=== PATIENT | female | born 1970 | race Caucasian/White ===

== ENCOUNTER 2018-12-11 16:52 | Emergency (ER) | payer BC ==
[2018-12-11] MEDS ORDERED: Acetaminophen TAB* 325 MG PO ONE (17:08)
[2018-12-11] MEDS ORDERED: Ketorolac INJ* 30 MG/ML 1 ML VIAL IV PUSH ONE (18:13)
[2018-12-11] MEDS ORDERED: NS 0.9% 1000 ML** 1,000 ML IV SCH (18:15)
--- NOTE | 2018-12-11 18:24 | UC ---
Headache HPI - HPI Summary HPI Summary: PATIENT WITH A HISTORY OF MIGRAINE HEADACHES. TAKES TOPAMAX DAILY AND RELPAX NEEDED USUALLY WITH GOOD EFFECT. HAS HAD A CONSTANT SHARP DIFFUSE HEADACHE SINCE YESTERDAY MORNING. HAD HER BLOOD PRESSURE CHECKED AT WORK AND IT WAS FOUND TO BE 142/110 AND SHE WAS ADVISED TO BE SEEN HERE. SHE HAS AN APPOINTMENT WITH HER PCP TOMORROW. SHE DENIES FEVER. NO NAUSEA. NO VISUAL DISTURBANCES. HAS SENSITIVITY TO SOUND AND LIGHT. FEELS WORSE THAN HER NORMAL MIGRAINE HEADACHE. - History Of Current Complaint Chief Complaint: UCGeneralIllness Stated Complaint: HIGH BLOOD PRESSURE Time Seen by Provider: 12/11/18 17:08 Hx Obtained From: Patient Hx Last Menstrual Period: 01/01/15 TUB2004 Onset/Duration: Gradual Onset, Lasting Days, Still Present Pain Intensity: 8 Pain Scale Used: 0-10 Numeric Timing: Constant Character: Sharp Location of Headache: Diffuse Aggravating Factor(s): Nothing Allevating Factor(s): Nothing Associated Signs And Symptoms: Negative: Nausea, Fever, Visual Changes - Allergies/Home Medications Allergies/Adverse Reactions: Allergies Allergy/AdvReac Type Severity Reaction Status Date / Time moxifloxacin [From Avelox] Allergy Difficulty Verified 12/11/18 17:03 Breathing sulfamethoxazole Allergy Rash Verified 12/11/18 17:03 [From Bactrim] trimethoprim [From Bactrim] Allergy Rash Verified 12/11/18 17:03 Home Medications: Home Medications Acetaminophen [Tylenol] 325 mg PO BID 12/11/18 [History Confirmed 12/11/18] Ibuprofen TAB* [Advil TAB*] 1 tab PO ONCE 12/11/18 [History Confirmed 12/11/18] PMH/Surg Hx/FS Hx/Imm Hx Neurological History: Migraine - Surgical History Surgical History: Yes Surgery Procedure, Year, and Place: 1985 & C-SECTIONS. 2004 TUBAL - Family History Known Family History: Positive: Non-Contributory - Social History Alcohol Use: Occasionally Substance Use Type: None Smoking Status (MU): Never Smoked Tobacco Review of Systems All Other Systems Reviewed And Are Negative: Yes Constitutional: Positive: Negative Eyes: Positive: Photophobia Respiratory: Positive: Negative Cardiovascular: Positive: Negative Gastrointestinal: Positive: Negative Neurological: Positive: Headache Physical Exam Triage Information Reviewed: Yes Appearance: Well-Appearing, No Pain Distress, Well-Nourished Vital Signs: Initial Vital Signs Temp 97.8 F 12/11/18 16:58 Pulse 80 12/11/18 16:58 Resp 12 12/11/18 16:58 BP 150/95 12/11/18 16:58 Pulse Ox 99 12/11/18 16:58 Vital Signs Reviewed: Yes Eyes: Positive: Conjunctiva Clear, Other: - PERRL, EOMI ENT: Positive: Hearing grossly normal, Pharynx normal, TMs normal Neck: Positive: Supple, Nontender, No Lymphadenopathy Respiratory Exam: Normal Cardiovascular Exam: Normal Abdomen Description: Positive: Soft Musculoskeletal: Positive: No Edema Neurological: Positive: Alert Psychological: Positive: Age Appropriate Behavior Skin: Negative: Rashes Headache Course/Dx - Course Course Of Treatment: BP ON ARRIVAL 150/95. MANUAL RECHECK 1 HR LATER 145/80. PATIENT HAS APPOINTMENT WITH PCP TOMORROW. ADVISED HER TO KEEP THIS APPOINTMENT TO DISCUSS HER BLOOD PRESSURE. I DO NOT FEEL SHE NEEDS TO BE TRANSFERRED TO THE EMERGENCY ROOM AT THIS TIME. FELT SLIGHTLY BETTER AFTER IV FLUID HYDRATION. - Differential Dx/Diagnosis Provider Diagnosis: Migraine Discharge - Sign-Out/Discharge Documenting (check all that apply): Patient Departure All imaging exams completed and their final reports reviewed: No Studies - Discharge Plan Condition: Stable Disposition: HOME Patient Education Materials: Migraine Headache (ED) Referrals: Brown Boo MD [Primary Care Provider] - (KEEP YOUR APPT TOMORROW) Additional Instructions: YOU HAD SOME IMPROVEMENT AFTER 1 L NORMAL SALINE AND 30 MG TORADOL. STAY WELL HYDRATED. YOUR BLOOD PRESSURE WAS SLIGHTLY ELEVATED IN THE 140s/80-90s WHILE YOU WERE HERE. WHILE THIS IS SLIGHTLY ELEVATED IT IS NOT AN ALARMING NUMBER. KEEP YOUR PCP APPOINTMENT TOMORROW TO FURTHER DISCUSS YOUR BLOOD PRESSURE AND HEADACHES. GO TO THE ED OVERNIGHT IF YOU DEVELOP WORSENING PAIN, FEVER, NAUSEA OR ANY OTHER CONCERNING SYMPTOMS. - Billing Disposition and Condition Condition: STABLE Disposition: Home
[2018-12-11 20:03] VITALS: BP 142/92
== END 2018-12-11 20:23 | disposition home or self-care (01) ==
LOC: UCEAST 16:52
DX: G43.909 Migraine, unspecified, not intractable, without status migrainosus (principal); Z88.2 Allergy status to sulfonamides; Z88.1 Allergy status to other antibiotic agents
CPT/HCPCS: 96360; 96374; 99212; A9270-GY; G0463; J1885

== ENCOUNTER 2019-05-03 10:27 | Emergency (ER) | payer BC ==
[2019-05-03] MEDS ORDERED: Metoclopramide IV* 5 MG/ML 2 ML VIAL IV SLOW PU ONE (11:45)
[2019-05-03] MEDS ORDERED: Acetaminophen TAB* 325 MG PO ONE (11:45)
[2019-05-03] MEDS ORDERED: NS 0.9% 1000 ML** 1,000 ML IV ONE (11:45)
[2019-05-03 12:23] LABS: ABS Basophils 0.1 10^3/ul (0-0.2); ABS Eosinophils 0.7 10^3/ul (0-0.6); ABS Lymphocytes 1.5 10^3/ul (1.0-4.8); ABS Monocytes 0.4 10^3/ul (0-0.8); ABS Neutrophils 3.1 10^3/ul (1.5-7.7); Eosinophil % 11.7 %; Hematocrit 40 % (35-47); Hemoglobin 13.7 g/dL (12.0-16.0); Lymphocyte % 25.8 %; Mean Corpuscular HGB Conc 34 g/dL (31-36); Mean Corpuscular Hemoglobin 30 pg (27-31); Mean Corpuscular Volume 89 fL (80-97); Mean Platelet Volume 8.1 fL (7.4-10.4); Nucleated Red Blood Cells % 0.1; Platelet Count 181 10^3/uL (150-450); Red Blood Count 4.53 10^6 /uL (3.70-4.87); Red Cell Distribution Width 13 % (10-15); White Blood Count 5.8 10^3/uL (3.5-10.8)
--- NOTE | 2019-05-03 12:25 | ED ---
Headache - HPI Summary HPI Summary: The patient is a 49 y/o F presenting to [facility] with a chief complaint of headache starting two weeks ago. She reports that she was hit in the head three weeks ago by a basketball and had an immediate onset SZYMANSKI that resolved. She didn' t have any LOC at this time. About a week later, she is started having another SZYMANSKI. She states she has hx of migraines and usually treats them with a Toradol shot if needed. Since the pain persisted, the patient had a Toradol shot on , but it only relieved the pain for that day. She has continued to experience the headache, located in the parietal regions and behind the right eye, as well as an off-balance sensation, neck pain, joint pains in the hands, and nausea without vomiting. She states that the pain does not keep her awake at night, but she wakes up with the pain. She denies fevers. She has been taking Fioricet and Relpax as she has been prescribed for migraines. She states the SZYMANSKI is the one of the longest and more severe that she's ever had. No other PMHx. Nonsmoker , rare EtOH, no substance use. - History Of Current Complaint Chief Complaint: EDHeadache Stated Complaint: MIGRAINE PER PT Time Seen by Provider: 05/03/19 11:44 Hx Obtained From: Patient Hx Last Menstrual Period: 01/01/15 TUBAL 2005 Onset/Duration: Sudden Onset, Started weeks ago - two, Still Present Initially Headache Was: "Worst Headache Ever" Currently Pain Is: Current Pain Scale(0-10)= - 10 Timing: Constant Character: Migraine Location of Headache: Parietal, Other: - behind right eye Aggravating Factor: Nothing Allevating Factors: Nothing - Toradol for one day but SZYMANSKI returned Associated Signs And Symptoms: Neck Pain, Other (Noted In Comments) - POSITIVE: nausea, sensation of being off-balance, joint pain in hands; NEGATIVE: fever, vomiting - Allergies/Home Medications Allergies/Adverse Reactions: Allergies Allergy/AdvReac Type Severity Reaction Status Date / Time cefdinir [From Omnicef] Allergy Severe Anaphylatic Verified 05/03/19 10:40 Shock moxifloxacin [From Avelox] Allergy Difficulty Verified 05/03/19 10:40 Breathing sulfamethoxazole Allergy Rash Verified 05/03/19 10:40 [From Bactrim] trimethoprim [From Bactrim] Allergy Rash Verified 05/03/19 10:40 Home Medications: Home Medications Butalb/Acetamin/Caff TAB* [Fioricet TAB*] 1 tab PO Q6H PRN 05/03/19 [History Confirmed 05/03/19] Eletriptan HBr 40 mg PO SEE INSTRUCTIONS PRN 05/03/19 [History Confirmed ] Naproxen [Naproxen 500 mg tab] 1,000 mg PO DAILY PRN 05/03/19 [History Confirmed 05/03/19] Topiramate 50 mg PO QAM 05/03/19 [History Confirmed 05/03/19] Topiramate 200 mg PO BEDTIME 05/03/19 [History Confirmed 05/03/19] PMH/Surg Hx/FS Hx/Imm Hx Endocrine/Hematology History: Denies: Hx Diabetes, Hx Thyroid Disease Cardiovascular History: Denies: Hx Hypertension Respiratory History: Denies: Hx Asthma, Hx Chronic Obstructive Pulmonary Disease (COPD) GI History: Denies: Hx Ulcer Neurological History: Reports: Hx Migraine - Surgical History Surgical History: Yes Surgery Procedure, Year, and Place: 1985 & C-SECTIONS. 2004 TUBAL Infectious Disease History: No Infectious Disease History: Denies: Hx Clostridium Difficile, Hx Hepatitis, Hx Human Immunodeficiency Virus (HIV), Hx of Known/Suspected MRSA, Hx Shingles, Hx Tuberculosis, Hx Known/ Suspected VRE, Hx Known/Suspected VRSA, History Other Infectious Disease, Traveled Outside the [place] in Last 30 Days - Family History Known Family History: Negative: Hypertension, Diabetes - Social History Alcohol Use: Rare Hx Substance Use: No Substance Use Type: Reports: None Hx Tobacco Use: No Smoking Status (MU): Never Smoked Tobacco Review of Systems Negative: Fever Positive: Nausea. Negative: Vomiting Positive: Myalgia - joint pain in hands, Other - neck pain Neurological: Other - off balance Positive: Headache - parietal, behind right eye, constant All Other Systems Reviewed And Are Negative: Yes Physical Exam - Summary Physical Exam Summary: Constitutional: Well-developed, Well-nourished, Alert. (-) Distressed Skin: Warm, Dry HENT: Normocephalic; Atraumatic Eyes: Conjunctiva normal Neck: Musculoskeletal ROM normal neck. (-) JVD, (-) Nuchal rigidity Cardio: Rhythm regular, rate normal, Heart sounds normal; Intact distal pulses; Radial pulses are 2+ and symmetric. (-) Murmur Pulmonary/Chest wall: Effort normal. (-) Respiratory distress, (-) Wheezes, (-) Rales Abd: Soft. (-) Tenderness, (-) Distension, (-) Guarding, (-) Rebound Musculoskeletal: (-) Edema Lymph: (-) Cervical adenopathy Neuro: Alert, PERRL, Oriented x3, Strength normal, Cranial nerves II-XII are grossly intact. SILT, Strength 5/5 BUE and BLE, (-) Dysmetria, (-) Nystagmus, ambulates w steady gait. GCS: 15. Psych: Mood and affect Normal Triage Information Reviewed: Yes Vital Signs On Initial Exam: Initial Vitals Temp Pulse Resp BP Pulse Ox 97.7 F 75 14 158/94 100 05/03/19 10:36 05/03/19 10:36 05/03/19 10:36 05/03/19 10:36 05/03/19 10:36 Vital Signs Reviewed: Yes - [place] Coma Scale Best Eye Response: 4 - Spontaneous Best Motor Response: 6 - Obeys Commands Best Verbal Response: 5 - Oriented Coma Scale Total: 15 Diagnostics - Vital Signs Vital Signs Temp Pulse Resp BP Pulse Ox 05/03/19 12:00 70 100 05/03/19 11:53 62 99 05/03/19 11:52 61 152/91 100 05/03/19 10:36 97.7 F 75 14 158/94 100 - Laboratory Result Diagrams: 05/03/19 12:03 05/03/19 12:03 Lab Statement: Any lab studies that have been ordered have been reviewed, and results considered in the medical decision making process. - CT Brain CT CT Interpretation Completed By: Radiologist Summary of CT Findings: Impression: No evidence for acute intracranial abnormality. ED physician has reviewed this report. Re-Evaluation - Re-Evaluation First Eval Re-Evaluation Time: 13:12 Change: Improved Comment: She is feeling better. She states she is going to go to work after discharge. Second Eval Re-Evaluation Time: 13:55 Change: Improved Comment: She continues to feel better. She agrees with discharge home. Ambulated w steady gait Headache Course/Dx - Course Course Of Treatment: 49 y/o female with a history of migraines presents with continuous headache for 2 weeks. This is a patient who presents with headache. Although does NOT have a history of headache of exactly the same type, pain was not sudden onset/thunderbolt, not worst of life (although more severe than normal and longer lasting) no meningismus, no neuro deficit on exam, and no personal/family history of aneurysm, so unlikely ICH. No known/suspected cancer and neuro exam WNL, so unlikely mass lesion. No fever, URI sx, meningismus, or known immunocompromised state to suggest meningitis. Check head CT. Will try symptomatic relief and reassess. Low suspicion for SAH given chronicity and gradual onset. - Diagnoses Provider Diagnoses: Migraine Discharge - Sign-Out/Discharge Documenting (check all that apply): Patient Departure - Patient will be discharged home. Patient Received Moderate/Deep Sedation with Procedure: No - Discharge Plan Condition: Improved Disposition: HOME Patient Education Materials: Migraine Headache (ED) Referrals: Param Juares MD [Medical Doctor] - 1 Day Brown Boo MD [Primary Care Provider] - 3 Days Additional Instructions: You were seen in the emergency department for headache. Your CT did not show any abnormalities. If any studies were not completed at the time of discharge you will be called with the relevant results. Please follow up with your primary care doctor in next 2-3 days and return to emergency department for worsening aches, fevers, confusion or altered mental status or concerning symptoms. - Billing Disposition and Condition Condition: IMPROVED Disposition: Home - Attestation Statements Document Initiated by Zach: Yes Documenting Scribe: María Brennan Provider For Whom Zach is Documenting (Include Credential): Dr. Penelope Beverly MD Scribe Attestation: María Braga scribed for Dr. Penelope Beverly MD on 05/03/19 at 1626. Scribe Documentation Reviewed: Yes Provider Attestation: The documentation as recorded by the María bryant accurately reflects the service I personally performed and the decisions made by me, Dr. Penelope Beverly MD Status of Scribe Document: Viewed
[2019-05-03 12:29] LABS: INR 1.08 (0.82-1.09)
[2019-05-03 12:37] LABS: Albumin 4.2 g/dL (3.2-5.2); Albumin/Globulin Ratio 1.7 (1-3); BUN/Creatinine Ratio 11.5 (8-20); Calcium 8.8 mg/dL (8.6-10.3); EGFR African American 83.1 (>60); EGFR Non-African American 68.6 (>60); Globulin 2.5 g/dL (2-4); Potassium 4.1 mmol/L (3.5-5.0); Total Bilirubin 0.3 mg/dL (0.2-1.0); Total Protein 6.7 g/dL (6.4-8.9)
[2019-05-03] MEDS ORDERED: Ketorolac INJ* 30 MG/ML 1 ML VIAL IV ONE (13:09)
[2019-05-03] MEDS ORDERED: Magnesium Sulfate 1 GM IV* 1 GM/100 ML BAG IV ONE (13:10)
[2019-05-03 14:26] VITALS: BP 125/82
== END 2019-05-03 14:25 | disposition home or self-care (01) ==
LOC: ED 10:27
DX: G43.909 Migraine, unspecified, not intractable, without status migrainosus (principal); M54.2 Cervicalgia; R11.0 Nausea; M25.542 Pain in joints of left hand; M25.541 Pain in joints of right hand; Z88.1 Allergy status to other antibiotic agents; Z88.2 Allergy status to sulfonamides
CPT/HCPCS: 36415; 70450; 80053; 85025; 85610; 96361; 96365; 96375; 99282; A9270-GY; J1885; J2765; J3475